=== PATIENT | male | born 1985 | race Caucasian/White ===

== ENCOUNTER 2020-08-23 12:50 | Emergency (ER) | payer BC, SELFPAY ==
[2020-08-23 12:52] VITALS: BP 157/104; PULSE 97; RESP 18; TEMP 36.5; O2SAT 99; BMI 30.5
--- NOTE | 2020-08-23 13:03 | ECG_ITS ---
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 Measurements Intervals [place] Rate: 96 P: 50 VA: 150 QRS: 27 QRSD: 82 T: 20 QT: 320 QTc: 404 Interpretive Statements SINUS RHYTHM POSSIBLE LEFT ATRIAL ENLARGEMENT [-0.1mV P WAVE IN V1/V2] No previous ECG available for comparison Electronically Signed On 08-23-2020 15:16:08 DE ICER by Jania Torres M.D. [id number] f
--- NOTE | 2020-08-23 13:30 | ED_ITS ---
HPI - Chest Pain General: Chief Complaint: Chest Pain Stated Complaint: CP, HIGH BLOOD PRESSURE Time Seen by Provider: 08/23/20 12:55 History of Present Illness: HPI narrative: 35-year-old male presents complaining of chest pain. He has had this he states for several years off-and-on he will get chest pain he has not really noticed anything that exacerbates or relieves it is not associated with any diaphoresis nausea vomiting no shortness of breath does seem to radiate into her back at times. He is not previously had it evaluated. He did call EMS they came out to his house and seen him he was evaluated ultimately ended up ER seeing from the scene. He then took privately owned vehicle to the hospital to be seen in the emergency room. MD complaint: chest pain Onset (ago): year(s) Timing of current episode: episodic Prior episodes: Yes Onset: other (No association with activity) Pain location: substernal Pain radiation: back Quality: aching Associated symptoms: Deny abdominal pain, dyspnea, fever(s), nausea or vomiting Review of Systems Const: Denies: fever(s), chills, body aches, change in appetite, fatigue or malaise ENMT: Denies: throat pain, ear or mastoid pain, nasal discharge or nasal congestion Card: Denies: chest pain, edema, dyspnea on exertion or orthopnea Resp: Denies: dyspnea, productive cough or non-productive cough GI: Denies: abdominal pain, nausea, vomiting, hematemesis, coffee ground emesis, diarrhea, constipation, bloating, hematochezia or melena : Denies: flank pain, dysuria, urinary frequency or urinary urgency Skin/Breast: Denies: rash or pruritus PFSH ED PFSH: Medical History (Updated 08/23/20 @ 14:33 by Laurent Chacon DO) No significant past medical history Surgical History (Updated 08/23/20 @ 14:22 by Laurent Chacon DO) No significant past surgical history Social History (Updated 08/23/20 @ 14:50 by Laurent Chacon DO) Smoking and tobacco status: never smoked Alcohol intake: current Alcohol intake frequency: 3 or more drinks per day Alcohol type: beer Physical Exam Const: COMMON NORMALS: no acute distress GENERAL APPEARANCE: cooperative and comfortable ORIENTATION/CONSCIOUSNESS: Yes awake, Yes oriented to person, Yes oriented to place and Yes oriented to time HENMT: COMMON NORMALS: normocephalic, atraumatic and hearing grossly normal bilaterally HEAD & SCALP: normocephalic and atraumatic Neck/C-Spine: COMMON NORMALS: no JVD Lymph: LYMPHATIC: no lymphadenopathy noted and no lymphedema noted Resp: COMMON NORMALS: normal respiratory effort, No retractions, No use of ac cessory muscles and clear to auscultation bilaterally AUSCULTATION: clear to auscultation bilaterally Cardio: COMMON NORMALS: no JVD, regular rate, regular rhythm and No murmurs present (Cardio) RATE: regular rate RHYTHM: regular rhythm GI: COMMON NORMALS: Soft to palpation and No hepatosplenomegaly present AUSCULTATION: Yes normoactive bowel sounds PALPATION: Yes Soft to palpation, No Tenderness to palpation present (GI), No Guarding due to palpation present (GI) and Yes No hepatosplenomegaly present Extremity: COMMON NORMALS: normal to inspection, capillary refill normal, no clubbing, cyanosis or edema, no calf tenderness and no pedal edema Neuro: SENSORIUM/ORIENTATION: Yes oriented to person, Yes oriented to place and Yes oriented to time Skin: COMMON NORMALS: no rashes or lesions noted GENERAL SKIN EXAM: no rashes or lesions noted Course Vital Signs: Vital signs: Vital Signs Temperature 97.7 F 08/23/20 12:52 Pulse Rate 97 08/23/20 12:52 Respiratory Rate 18 08/23/20 12:52 Blood Pressure 157/104 08/23/20 12:52 Pulse Oximetry 99 08/23/20 12:52 MDM - Chest Pain MDM Narrative: Medical decision making narrative: Patient has had this discomfort for years. Been discussing with him he drinks 8-10 beers per day he is not having any chest pain now is EKG is unremarkable and his chest x-ray is normal troponin we discussed his alcohol intake strongly encouraged him to decrease or stop start a month amlodipine for his blood pressure and baby aspirin daily. Set up for graded exercise test follow-up with PCP. He likes to establish with Dr. Argueta the director of casework department call that office also encourage patient to follow-up at office as well Lab Data: Attestation: I reviewed the patient's lab results. Labs: Lab Results 08/23/20 08/23/20 08/23/20 Range/Units 13:40 13:40 13:40 WBC 6.7 (4.0-10.0) 10^3/ uL RBC 5.42 H (4.1-5.3) 10^6/u L Hgb 17.4 H (11.7-16.6) g/dL Hct 49.2 (42.0-52.0) % MCV 90.8 (80-94) fL MCH 32.1 (28.0-34.0) pg MCHC 35.4 (30.0-36.0) g/dL RDW 11.6 L (12.1-15.1) % Plt Count 210 (130-400) 10^3/c mm MPV 11.4 H (7.4-10.4) fL Neut % (Auto) 67.3 % Lymph % (Auto) 23.7 % Caswell % (Auto) 6.7 % Eos % (Auto) 1.8 % Baso % (Auto) 0.4 % Neut # (Auto) 4.51 (1.8-7.7) 10^3/u L Lymph # (Auto) 1.6 (0.8-4.8) 10^3/u L Caswell # (Auto) 0.5 (0.2-0.9) 10^3/u L Eos # (Auto) 0.1 (0.0-0.8) 10^3/u L Baso # (Auto) 0.0 (0.0-0.1) 10^3/u L Nucleated RBC % (a uto) 0 % Nucleated RBCs # 0.0 /100WBC Sodium 138 (136-145) mmol/L Potassium 4.0 (3.5-5.1) mmol/L Chloride 99 (98-107) mmol/L Carbon Dioxide 25 (22-29) mmol/L Anion Gap 18.0 (5-19) BUN 11 (6-20) mg/dL Creatinine 1.1 (0.7-1.2) mg/dL GFR Calculation 75.7 L (90-130) mL/min Glucose 100 (65-115) mg/dL Calculated Osmolal ity 285 (285-295) mOsm/k g Calcium 9.8 (8.5-10.5) mg/dL Total Bilirubin 0.6 (0.15-1.2) mg/dL AST 44 H (0-40) U/L ALT 82 H (0-41) U/L Alkaline Phosphata se 78 (40-130) IU/L Troponin T Baselin e 6 (0-15) ng/L Total Protein 7.5 (6.6-8.7) g/dL Albumin 4.7 (3.5-5.2) g/dL Globulin 2.8 (1.3-4.6) g/dL Discharge Plan Discharge Patient Disposition: Home Clinical Impression: Atypical chest pain, Hypertension Condition: Stable Prescriptions: New aspirin 81 mg tablet,delayed release (DR/EC) 81 mg PO DAILY Qty: 30 RF: 0 amlodipine 5 mg tablet 5 mg PO DAILY Qty: 30 RF: 0 Discharge Orders: Discharge ED (Routine); Ordered 08/23/20 Ordered By: Laurent Chacon Discharge Diet: Usual diet Discharge Activity: Resume usual activity Activity Restrictions/Additional Instructions: Case management will call to make arrangements for you to have a graded exercise test. Follow-up with your doctor within the week to recheck your blood pressure. Continue to take a baby aspirin daily until you see your primary care provider. Coding Level of Care Code ED Manager Utilization Review for To Fwd Exam Comprehensive
[2020-08-23 13:50] LABS: Basophils % 0.4 %; Eosinophils # 0.1 10^3/uL (0.0-0.8); Eosinophils % 1.8 %; Hematocrit 49.2 % (42.0-52.0); Hemoglobin 17.4 g/dL (11.7-16.6); Lymphocytes # 1.6 10^3/uL (0.8-4.8); Lymphocytes % 23.7 %; Mean Corpuscular HGB Conc 35.4 g/dL (30.0-36.0); Mean Corpuscular Hemoglobin 32.1 pg (28.0-34.0); Mean Corpuscular Volume 90.8 fL (80-94); Mean Platelet Volume 11.4 fL (7.4-10.4); Monocytes # 0.5 10^3/uL (0.2-0.9); Monocytes % 6.7 %; Neutrophils # 4.51 10^3/uL (1.8-7.7); Neutrophils % 67.3 %; Nucleated Red Blood Cells % 0 %; Platelet Count 210 10^3/cmm (130-400); Red Blood Count 5.42 10^6/uL (4.1-5.3); Red Cell Distribution Width 11.6 % (12.1-15.1); White Blood Count 6.7 10^3/uL (4.0-10.0)
[2020-08-23 14:27] LABS: Alanine Aminotransferase 82 U/L (0-41); Albumin Level 4.7 g/dL (3.5-5.2); Alkaline Phosphatase 78 IU/L (40-130); Aspartate Amino Transferase 44 U/L (0-40); Blood Urea Nitrogen 11 mg/dL (6-20); Calcium 9.8 mg/dL (8.5-10.5); Carbon Dioxide 25 mmol/L (22-29); Chloride 99 mmol/L (98-107); Globulin 2.8 g/dL (1.3-4.6); Glomerular Filtration Rate 75.7 mL/min (90-130); Glucose 100 mg/dL (65-115); Osmolality Calculated 285 mOsm/kg (285-295); Sodium 138 mmol/L (136-145); Total Bilirubin 0.6 mg/dL (0.15-1.2); Total Protein 7.5 g/dL (6.6-8.7); Troponin(5th) Baseline 6 ng/L (0-15)
--- NOTE | 2020-08-23 14:34 | XR_ITS ---
WS: [id number] XR chest 1V portable [id number] REASON FOR EXAM: dyspnea/cough FINDINGS: The heart and mediastinum are within normal limits. Calcified granulomatous disease is seen in both hemithoraces. No active pulmonary parenchymal or pleural disease. Bony thorax is intact. XR/XR chest 1V portable [id number] IMPRESSION: No acute chest abnormality.
--- NOTE | 2020-08-23 15:03 | ECG_ITS ---
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 Measurements Intervals [place] Rate: 92 P: 42 AK: 159 QRS: 27 QRSD: 81 T: 23 QT: 320 QTc: 398 Interpretive Statements SINUS RHYTHM POSSIBLE LEFT ATRIAL ENLARGEMENT [-0.1mV P WAVE IN V1/V2] Compared to ECG 08/23/2020 12:58:34 No significant changes Electronically Signed On 08-23-2020 17:13:00 MANAGER CATEGORY by Jania Torres M.D. [email or web address] SolutionsPriceAdvicemercy health st[facility].kalidea/store/OM/[id number]
[2020-08-23 15:06] VITALS: BP 153/107; PULSE 90; RESP 20; O2SAT 96
--- NOTE | 2020-08-23 15:59 | DCPLANNER ---
mine engineering manager had message to schedule an out patient stress test, and to establish with a primary care physician. Patient stated that he would like to see Dr. Argueta at [facility], patient was told, that physician is not taking new patients at this time, he stated that he knew the physician. mine engineering manager called [facility] and made a referral to Dr. Argueta, patient is supposed to call and see if he can be accepted by Dr. Argueta. mine engineering manager faxed order for stress test to centralized scheduling, will call for appointment information. Patient stated that if he could not be seen by Dr. Argueta that he would see the INDUSTRIAL ANALYST, Elizabeth Argueta.
--- NOTE | 2020-08-30 10:55 | DCPLANNER ---
Patient has an out patient stress test scheduled for Wednesday, September 02, 2020 at 1:00. Centralized scheduling will call patient with appointment information.
--- NOTE | 2020-10-18 08:12 | DCPLANNER ---
Patient had an outpatient stress test - patient did attend the stress test.
== END 2020-08-23 15:22 | disposition home or self-care (01) ==
PROVIDERS: Emergency Provider Family Medicine
DX: R07.89 Other chest pain (principal); I10 Essential (primary) hypertension
CPT/HCPCS: 12345; 71045; 80053; 84484; 85025; 93005; 99282; 99283

== ENCOUNTER 2020-09-02 09:09 | Outpatient (CLI) | payer BC, SELFPAY ==
[2020-09-02 09:33] VITALS: BMI 30.5
--- NOTE | 2020-09-02 09:33 | ECG_ITS ---
[facility] Test Date: 2020-09-02 Pat Name: MARC HADDAD Department: Room: Gender: Male Insurance Account Specialist: Esme Suggs : 1985 Requested By: Laurent Alejo Order Number: [id number] Yassine MD: GIANNA ROSS Interpretive Statements NAME OF STUDY: TREADMILL STRESS TEST INDICATION: Chest Pain EXERCISE DATA: The patient was exercised by [place] protocol. Baseline heart rate was 85 beats per minute. Baseline blood pressure was 138/95 millimeters of mercury. Target heart rate was 184 beats per minute. Maximum heart rate achieved was 182, which was 98 % of the target heart rate. Maximum blood pressure was 197/95 millimeters of mercury. Total exercise time was 10 minutes. Maximum METs achieved was 13.5, maximum VO2 was 47.3. The reason for ending the test was completion of the protocol. The patient complained of shortness of breath during the stress test, which then resolved at the end of the test. ELECTROCARDIOGRAM: BASELINE: Sinus rhythm, normal axis, no significant ST-T changes at the baseline noted. EXERCISE: At the peak exercise level, no significant ST-T changes suggestive of ischemia noted. RECOVERY: During the recovery period, heart rate dropped appropriately. No significant ST-T changes in the recovery suggestive of ischemia noted. CONCLUSION: 1. Exercise capacity good. 2. Heart rate response was appropriate. 3. Blood pressure response was hypertensive. 4. Symptoms not suggestive of ischemia. 5. Electrocardiogram portion of the stress test was not suggestive of ischemia. 6. Nuclear scan will be documented separately. Electronically Signed On 09-05-2020 13:32:29 SPRING COILER HAND by GIANNA ROSS [email or web address] [facility].[employer]/store/OM/[id number]
[2020-09-02 09:48] VITALS: BP 179/50; PULSE 100
== END 2020-09-02 09:10 | disposition home or self-care (01) ==
LOC: CDL 09:14
PROVIDERS: Visit Provider Family Medicine
DX: R07.9 Chest pain, unspecified (principal)
CPT/HCPCS: 93017

== ENCOUNTER 2021-02-16 15:01 | Outpatient (CLI) | payer BC, SELFPAY ==
--- NOTE | 2021-02-16 15:45 | XR_ITS ---
WS: [id number] LUMBAR SPINE: 3 VIEWS TECHNIQUE: AP, lateral and L5-S1 spot. HISTORY: low back pain COMPARISON: None available. Mild straightening of the normal lumbar lordosis. No significant retropulsion of vertebral bodies. Di sc spaces and vertebral body heights are normal. Small osteophytes extend toward the neural foramen a t L5-S1. Pedicles are all identified. Normal soft tissue surrounding the lumbar spine. SI joints are symmetric bilaterally. No soft tissue abnormalities. XR/XR lumbar spine 2-3V* [id number] IMPRESSION: 1. Mild straightening of the normal lumbar spine with mild narrowing of the L5 -S1 foramina. 2. No fracture.
== END 2021-02-16 15:02 | disposition home or self-care (01) ==
PROVIDERS: PCP Family Medicine; Visit Provider Family Medicine
DX: M54.5 Low back pain (principal)
CPT/HCPCS: 72100

== ENCOUNTER 2021-02-24 09:40 | Outpatient (RCR) | payer BC, SELFPAY | END 2021-03-15 23:59 | disposition home or self-care (01) | LOC: SPT 09:40 | PROVIDERS: PCP Family Medicine; Referring Provider Family Medicine; Visit Provider Family Medicine | DX: M54.42 Lumbago with sciatica, left side (principal); G89.29 Other chronic pain | CPT/HCPCS: 97110; 97162 ==

== ENCOUNTER 2021-03-16 06:00 | Outpatient (RCR) | payer BC, SELFPAY | END 2021-04-15 23:59 | disposition home or self-care (01) | LOC: SPT 06:00 | PROVIDERS: PCP Family Medicine; Referring Provider Family Medicine; Visit Provider Family Medicine | DX: M54.42 Lumbago with sciatica, left side (principal); G89.29 Other chronic pain | CPT/HCPCS: 97110 ==

== ENCOUNTER 2021-04-16 06:00 | Outpatient (RCR) | payer BC, SELFPAY | END 2021-05-16 23:59 | disposition home or self-care (01) | LOC: SPT 06:00 | PROVIDERS: PCP Family Medicine; Referring Provider Family Medicine; Visit Provider Family Medicine | DX: M54.42 Lumbago with sciatica, left side (principal); G89.29 Other chronic pain | CPT/HCPCS: 97110 ==

== ENCOUNTER 2021-05-17 06:00 | Outpatient (RCR) | payer BC, SELFPAY | END 2021-06-15 23:59 | disposition home or self-care (01) | LOC: SPT 06:00 | PROVIDERS: PCP Family Medicine; Referring Provider Family Medicine; Visit Provider Family Medicine | DX: M54.42 Lumbago with sciatica, left side (principal); G89.29 Other chronic pain | CPT/HCPCS: 97110 ==

== ENCOUNTER 2021-07-27 08:11 | Outpatient (CLI) | payer BC, SELFPAY ==
--- NOTE | 2021-07-27 08:45 | MR_ITS ---
WS: [id number] MRI LUMBAR SPINE NONCONTRAST HISTORY: chronic low back pain COMPARISON: None available. TECHNIQUE: Sagittal and axial multisequence imaging is submitted. Mild straightening of the normal lumbar lordosis. No fracture or marrow edema. Very mild disc space narrowing at L5-S1. Conus terminates normally at L1-2 disc level. L1-L2: Normal. L2-L3: Normal. L3-L4: Very mild ligamentum flavum hypertrophy. No stenosis. L4-L5: Moderate sized LEFT subarticular recess disc protrusion with deformity and contact on the LEFT lateral thecal sac. Displacement of the thecal sac with encroachment upon the traversing L5 nerve ro ots bilaterally but greatest on the LEFT. Moderate LEFT subarticular recess stenosis and encroachment mild LEFT foraminal narrowing. Small amount of fluid in the facet joints and mild ligamentum flavum hypertrophy. L5-S1: Very mild annular disc bulging and osteophytosis. More focal central disc protrusion with priscilla lar fissure. The disc is contacting the S1 nerve roots bilaterally with mild posterior displacement. Very mild foraminal narrowing and mild subarticular recess stenosis. MR/MR lumbar spine wo con* [id number] IMPRESSION: 1. Moderate-sized LEFT subarticular recess disc protrusion at L4-5 with signif icant encroachment upon the traversing L5 nerve root and the thecal sac. 2. There is encroachment upon both of the traversing L5 nerve roots but greate st on the LEFT. Moderate LEFT subarticular recess stenosis and mild LEFT forami nal stenosis at L4-5. 3. Disc bulging and central protrusion contacting the S1 nerve roots bilateral ly with mild posterior displacement. Mild subarticular and foraminal narrowing at L5-S1.
== END 2021-07-27 08:12 | disposition home or self-care (01) ==
LOC: RADSHAW 08:13
PROVIDERS: PCP Family Medicine; Visit Provider Family Medicine
DX: M51.26 Other intervertebral disc displacement, lumbar region (principal); G89.29 Other chronic pain
CPT/HCPCS: 72148

== ENCOUNTER → 2021-08-21 10:04 | Outpatient (BNVA) | payer BC, SELFPAY | PROVIDERS: PCP Family Medicine; Referring Provider Family Medicine; Visit Provider Anesthesiology Pain Medicine | DX: G89.29 Other chronic pain (principal); M51.16 Intervertebral disc disorders with radiculopathy, lumbar region; M47.816 Spondylosis without myelopathy or radiculopathy, lumbar region; M79.604 Pain in right leg; M79.605 Pain in left leg; F17.220 Nicotine dependence, chewing tobacco, uncomplicated | CPT/HCPCS: 99204 ==

== ENCOUNTER → 2021-12-12 08:30 | Outpatient (BNVA) | payer BC, SELFPAY | PROVIDERS: PCP Family Medicine; Visit Provider Orthopaedic Surgery | DX: M51.16 Intervertebral disc disorders with radiculopathy, lumbar region (principal); M47.816 Spondylosis without myelopathy or radiculopathy, lumbar region | CPT/HCPCS: 72110 ==

== ENCOUNTER → 2021-12-27 11:32 | Outpatient (BNVA) | payer BC, SELFPAY | PROVIDERS: PCP Family Medicine; Visit Provider Family Medicine | DX: I10 Essential (primary) hypertension (principal) | CPT/HCPCS: 80053; 80061; 82043; 85025 ==

== ENCOUNTER 2022-01-01 07:19 | Day surgery (SDC) | payer BC, SELFPAY ==
[2021-12-29 13:00] VITALS: BMI 29.1
--- NOTE | 2021-12-29 13:19 | P.ANESASSM_ITS ---
Pre-Anesthetic Assessment Height/Weight: Height 1.83 m Weight 97.522 kg Operation Date: 01/01/22 08:30 Proposed Procedures p Lumbar Spine Decompression possible discectomy L4/5 16725/33812/M51.16(Not Applicable) - Clement Manriquez DO Familial anesthetic complications: None Was Beta Karie taken within 24 hours: N/A Was Clonidine taken within 24 hours: N/A Social Alcohol (Daily beer) and Tobacco (chews) Exam alert, oriented x 3, clear to auscultation bilaterally and regular rate & rhythm Airway Submandibular: within normal limits Cervical ROM: within normal limits Mallampati: Class II Dentition: full CV/HEM Hypertension GI Gastroesophageal Reflux Disease [facility] Lower Back Pain Anesthetic Plan ASA status: 2 Anesthesia: General Medications/Allergies Home Medications Medication Instructions Recorded Confirmed Last Taken Type gabapentin 600 mg tablet 600 mg PO TID #90 tab 11/14/21 12/29/21 Unknown Rx amlodipine 10 mg tablet 10 mg PO DAILY #90 tab 12/25/21 12/29/21 Unknown Rx omeprazole 20 mg capsule,delayed 20 mg PO DAILY PRN 90 Days #90 cap 12/25/21 12/29/21 Unknown Rx release MDD 1 acetaminophen 325 mg capsule 1,500 mg PO TID 12/29/21 12/29/21 Unknown History (Tylenol) naproxen 500 mg tablet (Naprosyn) 500 mg PO BID 12/29/21 12/29/21 Unknown History Allergies Allergy/AdvReac Type Severity Reaction Status Date / Time No Known Allergies Allergy Verified 12/29/21 12:56 [facility] Anesthesia Surgical History No significant past surgical history Family History Other CAD (coronary artery disease) Cancer Diabetes Family history of premature coronary artery disease Social History Smoking and tobacco status: former smoker Alcohol intake: current Alcohol intake frequency: 3 or more drinks per day Alcohol type: beer Data Anesthesia Cardiac Studies: No Data to Display
[2022-01-01] VITALS (11 sets, daily range): BP systolic 115–142; BP diastolic 78–92; PULSE 72–100; RESP 12–20; TEMP 36.6–36.7; O2SAT 97–100
--- NOTE | 2022-01-01 | SCC_ITS ---
Procedure done: Left L4/5 laminectomy with partial facetectomy and discectomy 11.6 seconds of fluoroscopic guidance, for a cumulative dose of 3.67 mGy, was provided to Dr. Manriquez by the radiology department. C-arm images of the lumbar spine were saved for the patient's permanent record. [facility]ITAL[facility]
--- NOTE | 2022-01-01 | XR_ITS ---
WS: [id number] Exam: XR lumbar spine 1V [id number] Date/Time of Exam: 01/01/2022 12:00 AM Reason For Exam: left sided l4-l5 2 anterior posterior intraoperative C-arm images of the lumbar spine are submitted. Localization hardware has been placed over the L4-5 disc level on both images. No other significant f inding on this limited study.
--- NOTE | 2022-01-01 07:52 | W.PM.OPSUD ---
Surgery/Procedure H&P Update DATE OF PROCEDURE: January 01, 2022 DATE H&P PERFORMED: 12/12/21 H&P UPDATE INFORMATION: I have reviewed H&P completed within last 30 days, I have examined patient prior to procedure and No changes to prior documentation PREOP DIAGNOSIS: Lumbar radiculopathy PLANNED PROCEDURE: Operation Date: 01/01/22 08:30 Proposed Procedures p Lumbar Spine Decompression possible discectomy L4/5 00802/30561/M51.16(Not Applicable) - Clement Manriquez DO
[2022-01-01] MEDS: sodium chloride 0.9% 1,000 ML 30 ML IV (08:21)
--- NOTE | 2022-01-01 08:22 | P.ANESUD_ITS ---
Pre-Anesthetic Update Pre-Anesthetic Assessment: Date of Surgery/Procedure: 01/01/22 Preop Verna gnosis: Lumbar radiculopathy Proposed Procedure: Operation Date: 01/01/22 08:30 Proposed Procedures p Lumbar Spine Decompression possible discectomy L4/5 58836/13215/M51.16(Not Applicable) - Clement Manriquez, DO Any changes to Pre-Anesthetic Assessment?: No Last Intake: Intake Last Liquid Date 12/31/21 Last Liquid Time 19:00 Last Solid Date 12/31/21 Last Solid Time 19:00 Vitals: Temperature 97.8 F 01/01/22 07:39 Temperature Source Temporal Artery S can 01/01/22 07:39 Pulse Rate 96 01/01/22 07:39 Pulse Rhythm 01/01/22 07:42 Pulse Strength 3+ Normal 01/01/22 07:42 Respiratory Rate 18 01/01/22 07:39 Blood Pressure 122/85 01/01/22 07:39 Blood Pressure Fawn n 97 01/01/22 07:39 Pulse Oximetry 97 01/01/22 07:39 Oxygen Delivery Me thod 01/01/22 07:42 Exam: Pre-Anes Outpt Exam: alert, oriented x 3, clear to auscultation bilaterally and regular rate & rhythm Cardiac Studies: No Data to Display
--- NOTE | 2022-01-01 10:07 | P.OP_ITS ---
Operative Report Date of procedure: January 01, 2022 Pre-op diagnosis: Preop Diagnosis Lumbar radiculopathy Post-op diagnosis: same Procedure done: Left L4/5 laminectomy with partial facetectomy and discectomy Surgeon: Clement Manriquez Buffing Wheel Former Automatic: Desmond Lemus Buffing Wheel Former Automatic: The neurosurgical nurse, Desmond Lemus, RAY was needed for his expertise under the microscope. He was important and necessary throughout the procedure to complete in a safe and timely manner. He assisted with patient positioning prepping and draping tissue retraction suctioning of the operative field protection of the dural sac and tissue closure Estimated blood loss (mL): 10 Procedure: Left L4/5 laminectomy with partial facetectomy and discectomy Patient is brought to the operative suite. After undergoing anesthesia they are placed in the prone position. All areas of impingement are well padded. Patient is then prepped and draped in the normal sterile fashion. A skin incision is made over the L4/5 level. This is confirmed under c-arm guidance. A series of dilators are passed and the tubular retractor is docked on the L4 lamina. A bovie is used to clear the soft tissue off the lamina and the L 4/5 facet joint. A high speed rula is then used to perform the laminectomy and take down the medial aspect of the L 4/5 facet joint. A kerrison rongeure was then used to take down the remaining lamina and smooth the edge of the laminectomy up to the point where the ligamentum flavum attaches. Attention was then brought to the medial aspect of the facet joint. The remaining medial aspect of the superior and inferior aspect of the facet joint were taken down with the kerrison from the pedicle of L4 to L 5. The facet joint had significant hypertrophy. Attention was then brought to the Ligamentum Flavum. The ligament was taken down from the lamina of L4 to L5 and out medially to the remaining facet joint. The ligament was thick. The dura was then exposed. The dura was in good repair. Disc was then exposed multiple small pieces of disc were removed. The L4 nerve was then traced with a curette out the L4/5 foramen and found to be adequately decompressed. The L5 nerve was traced with a curette around the L5 pedicle. The lateral recess was opened with a kerrison helping to further decompress the L5 nerve. Wound is then irrigated copiously with saline and surgiflo is used to stop any bleeding. The tubular retractor is removed and the wound is closed with vicryl and monocryl suture. Glue is then used to protect the wound. A sterile dressing is then placed. Patient was then placed in the supine position and transferred to the PACU in stable condition.
[2022-01-01] MEDS: fentaNYL 50 mcg/mL INJ 2mL IVP ×2 (10:09→10:17)
[2022-01-01] MEDS: cetylpyridinium Lozenge 1 EACH MUCOUS MEM (11:00)
[2022-01-01] MEDS: HYDROcodone-acetaminophen 5-325 mg Tablet 1 TAB PO (11:38)
--- NOTE | 2022-01-01 14:39 | ANE.PACU2 ---
Inpatient post-anesthesia follow up: Airway intact: Yes Vital signs: Temperature 98.0 F Pulse Rate 72 Respiratory Rate 16 Blood Pressure 131/78 Pulse Oximetry 98 Oxygen Delivery Me thod Room Air Oxygen Flow Rate 6 Fraction of Inspir ed Oxygen Hydration adequate: Yes Nausea and vomiting: No Pain level: 4 Mental status: Baseline
== END 2022-01-01 11:30 | disposition home or self-care (01) ==
PROVIDERS: PCP Family Medicine; Visit Provider Orthopaedic Surgery
PROC: (CPT 63005; principal; 2022-01-01 08:30)
DX: M54.16 Radiculopathy, lumbar region (principal); F17.220 Nicotine dependence, chewing tobacco, uncomplicated; I10 Essential (primary) hypertension; K21.9 Gastro-esophageal reflux disease without esophagitis
CPT/HCPCS: 63047; 72020; 76000; J0690; J1100; J2250; J2370; J2405; J2704; J2710; J3010; J3490; J7030